=== PATIENT | female | born 1935 | race Caucasian/White ===

== ENCOUNTER 2022-09-01 10:31 | Emergency (ER) | payer OTHER, BC ==
[2022-09-01 11:21] LABS: Urine Blood Negative (Negative); Urine Glucose Negative (Negative); Urine Protein Negative (Negative); Urine pH 5.5 (5.0-7.0)
[2022-09-01 11:44] LABS: Absolute Lymphocytes (CBC) 0.9 K/uL (0.7-4.9); Hematocrit 21.3 % (36.0-45.0); Lymphocytes % 12.8 % (15.3-44.8); MCV 74.8 fL (80-100); RBC Red Blood Cell Count 2.85 M/uL (3.86-4.86)
[2022-09-01 11:58] LABS: Protime INR 1.12
[2022-09-01 12:03] LABS: Urine Bacteria <20 /HPF (<20); Urine Mucus Slight /HPF (None Seen); Urine RBC <5 /HPF (None Seen)
[2022-09-01 12:13] LABS: Bilirubin Direct 0.2 mg/dL (0-0.2); Bilirubin Total 0.4 mg/dL (0.2-1.0); Potassium 4.2 mmol/L (3.5-5.1); Protein, Total 6.6 g/dL (6.4-8.2); Troponin High Sensitivity 16.8 pg/mL (<58.9)
--- NOTE | 2022-09-01 13:07 | EDPHYS ---
Physician Documentation [facility] Name: Magaly Malloy Age: 86 yrs Sex: Female : 1935 Arrival Date: 09/01/2022 Time: 10:36 Bed 19 Private MD: ED Physician Rachele Klein HPI: 09/01 11:29 This 86 yrs old Female presents to ER via Ambulatory with complaints of Abnormal Lab sp3 Results. 11:29 86-year-old female with history of hypertension, hyperlipidemia, iron deficiency anemia sp3 presents with chief complaint generalized weakness and hemoglobin of 5.8 discovered yesterday during preoperative studies prior to planned procedure. Physician Dr. Soto sent her to the ED for blood transfusion and further evaluation. Patient has no other symptoms including headache, neck pain, chest pain, shortness of breath, abdominal pain, nausea, vomiting, diarrhea, melena, bleeding, or any other ROS symptoms at this time. She does describe generalized weakness without syncope or near syncope.. Historical: - Allergies: 10:40 No Known Allergies; ll1 - PMHx: 10:40 Hypertensive disorder; Hypercholesterolemia; Anemia; ll1 - PSHx: 10:40 hip replaced L; tubes tied; ll1 - Immunization history:: Client reports receiving the 2nd dose of the Covid vaccine. - Social history:: Smoking status: Patient denies any tobacco usage or history of. ROS: 11:31 Constitutional: Negative for fever, chills, and weight loss, Eyes: Negative for injury, sp3 pain, redness, and discharge, ENT: Negative for injury, pain, and discharge, Neck: Negative for injury, pain, and swelling, Cardiovascular: Negative for chest pain, palpitations, and edema, Respiratory: Negative for shortness of breath, cough, wheezing, and pleuritic chest pain, Abdomen/GI: Negative for abdominal pain, nausea, vomiting, diarrhea, and constipation, Back: Negative for injury and pain, Skin: Negative for injury, rash, and discoloration, Psych: Negative for depression, anxiety, suicide ideation, homicidal ideation, and hallucinations, Allergy/Immunology: Negative for hives, rash, and allergies. 11:31 All other systems are negative. Exam: 11:32 Constitutional: This is a well developed, well nourished patient who is awake, alert, sp3 and in no acute distress. Head/Face: Normocephalic, atraumatic. Eyes: Pupils equal round and reactive to light, extra-ocular motions intact. Lids and lashes normal. Conjunctiva and sclera are non-icteric and not injected. Cornea within normal limits. Periorbital areas with no swelling, redness, or edema. Neck: Trachea midline, no thyromegaly or masses palpated, and no cervical lymphadenopathy. Supple, full range of motion without nuchal rigidity, or vertebral point tenderness. No Meningismus. Chest/axilla: Normal chest wall appearance and motion. Nontender with no deformity. No lesions are appreciated. Cardiovascular: Regular rate and rhythm with a normal S1 and S2. No gallops, murmurs, or rubs. Normal PMI, no JVD. No pulse deficits. Respiratory: Lungs have equal breath sounds bilaterally, clear to auscultation and percussion. No rales, rhonchi or wheezes noted. No increased work of breathing, no retractions or nasal flaring. Abdomen/GI: Soft, non-tender, with normal bowel sounds. No distension or tympany. No guarding or rebound. No evidence of tenderness throughout. Back: No spinal tenderness. No costovertebral tenderness. Full range of motion. Skin: Warm, dry with normal turgor. Normal color with no rashes, no lesions, and no evidence of cellulitis. MS/ Extremity: Pulses equal, no cyanosis. Neurovascular intact. Full, normal range of motion. Neuro: Awake and alert, GCS 15, oriented to person, place, time, and situation. Cranial nerves II-XII grossly intact. Motor strength 5/5 in all extremities. Sensory grossly intact. Cerebellar exam normal. Normal gait. 13:02 ECG was reviewed by the Attending Physician. EKG demonstrates atrial fibrillation at 52 sp3 bpm without any evidence of ischemia on ST/T-segment's, poor R wave progression incomplete left bundle branch block. Vital Signs: 10:42 BP 143 / 52; Pulse 57; Resp 16; Temp 97.4; Pulse Ox 99% ; Weight 61.69 kg; Height 5 ft. ll1 0 in. (152.40 cm); Pain 0/10; 11:36 Pulse 56; Pulse Ox 99% on R/A; ap3 13:47 BP 142 / 53; Pulse 52; Pulse Ox 98% on R/A; ap3 16:53 BP 139 / 56; Pulse 50; Pulse Ox 99% on R/A; ap3 19:07 BP 151 / 54; Pulse 43; Resp 16; Pulse Ox 98% ; Pain 0/10; jj7 20:00 BP 148 / 65; Pulse 42; Resp 15; Pulse Ox 97% ; Pain 0/10; jj7 21:12 BP 154 / 61; Pulse 44; Resp 17; Pulse Ox 96% ; jj7 22:29 BP 141 / 82; Pulse 45; Resp 14; Pulse Ox 97% ; Pain 0/10; jj7 10:42 Body Mass Index 26.56 (61.69 kg, 152.40 cm) ll1 MDM: 10:49 Patient medically screened. sp3 11:32 Data reviewed: vital signs, nurses notes. ED course: 86-year-old female with a history sp3 of hypertension and iron deficiency anemia presents with hemoglobin of 5.8. I do not believe patient has acute losses and we will validate that low value with repeat studies. Units of PRBCs will be ordered once confirmed and transfused in the ED with subsequent discharge. Patient does not have any criteria for admission or 23-hour observation. Further work-up and reevaluation per her primary physician and team.. 13:03 ED course: Hemoglobin is 6.9 on repeat. We will still transfuse 2 units and then sp3 discharge her home to her PCP.. 09/01 10:48 Order name: Basic Metabolic Panel; Complete Time: 13:03 sp3 09/01 10:48 Order name: CBC with Diff; Complete Time: 13:03 sp3 09/01 10:48 Order name: LFT's; Complete Time: 13:03 sp3 09/01 10:48 Order name: PT-INR; Complete Time: 13:03 sp3 09/01 10:48 Order name: Troponin HS; Complete Time: 13:03 sp3 09/01 10:48 Order name: Type And Screen sp3 09/01 10:50 Order name: Type and Screen EDMS 09/01 10:51 Order name: Bb Add On bd 09/01 11:22 Order name: Urine Dipstick-Ancillary; Complete Time: 13:03 EDMS 09/01 11:25 Order name: Urine Microscopic Only; Complete Time: 13:03 kj1 09/01 11:26 Order name: Urine Culture kj1 09/01 14:10 Order name: ABO/RH no charge EDMS 09/01 10:48 Order name: EKG; Complete Time: 10:48 sp3 09/01 10:48 Order name: Cardiac monitoring; Complete Time: 11:48 sp3 09/01 10:48 Order name: EKG - Nurse/Tech; Complete Time: 11:48 sp3 09/01 10:48 Order name: IV Saline Lock; Complete Time: 11:48 sp3 09/01 10:48 Order name: Labs collected and sent; Complete Time: 12:02 sp3 09/01 10:48 Order name: O2 Sat Monitoring; Complete Time: 10:54 sp3 09/01 13:32 Order name: Labs - recollect needed: recollect abo rh; Complete Time: 13:41 bd Administered Medications: 20:37 Drug: Tylenol 1000 mg Route: PO; jj7 21:48 Follow up: Response: Marked relief of symptoms jj7 Disposition Summary: 09/01/22 13:07 Discharge Ordered Location: Home sp3 Condition: Stable sp3 Diagnosis - Anemia, unspecified sp3 Followup: sp3 - With: Private Physician - When: Upon discharge from the Emergency Department - Reason: Continuance of care Discharge Instructions: - Discharge Summary Sheet sp3 - Blood Transfusion, Adult sp3 Forms: - Medication Reconciliation Form sp3 - Thank You Letter sp3 - Antibiotic Education sp3 - Prescription Opioid Use sp3 Signatures: Dispatcher [employer] EDMS Katia Jovel Lynsay, RN RN ll1 Rachele Klein MD MD sp3 Linda Graves RN RN jj7 Gael Lindsay MD MD rt
--- NOTE | 2022-09-01 13:07 | ER ---
Nurse's Notes [facility] Name: Magaly Malloy Age: 86 yrs Sex: Female : 1935 Arrival Date: 09/01/2022 Time: 10:36 Bed 19 Private MD: Diagnosis: Anemia, unspecified Presentation: 09/01 10:42 Chief complaint: Patient states: Pre-op labs done yesterday. HGB 5.8, sent in by Marifer antonio and Dr. Soto. + fatigued. Coronavirus screen: Vaccine status: Patient reports receiving the 2nd dose of the covid vaccine. Client denies travel out of the [place] in the last 14 days. At this time, the client does not indicate any symptoms associated with coronavirus-19. Ebola Screen: Patient denies travel to an Ebola-affected area in the 21 days before illness onset. Risk Assessment: Do you want to hurt yourself or someone else? Patient reports no desire to harm self or others. Onset of symptoms was August 31, 2022. 10:42 Method Of Arrival: Ambulatory ll1 10:42 Acuity: ROBERT 2 ll1 10:53 Initial Sepsis Screen: Does the patient meet any 2 criteria? No. Patient's initial ap3 sepsis screen is negative. Does the patient have a suspected source of infection? No. Patient's initial sepsis screen is negative. Triage Assessment: 10:53 General: Appears in no apparent distress. Behavior is calm, cooperative. Pain: Denies ll1 pain. Neuro: Reports weakness. Historical: - Allergies: 10:40 No Known Allergies; ll1 - PMHx: 10:40 Hypertensive disorder; Hypercholesterolemia; Anemia; ll1 - PSHx: 10:40 hip replaced L; tubes tied; ll1 - Immunization history:: Client reports receiving the 2nd dose of the Covid vaccine. - Social history:: Smoking status: Patient denies any tobacco usage or history of. Screenin:51 Abuse screen: Denies threats or abuse. Nutritional screening: No deficits noted. ap3 Tuberculosis screening: No symptoms or risk factors identified. 11:35 [facility] ED Fall Risk Assessment (Adult) History of falling in the last 3 months, ap3 including since admission No falls in past 3 months (0 pts) Confusion or Disorientation No (0 pts) Intoxicated or Sedated No (0 pts) Impaired Gait Yes (1 pt) Mobility Assist Device Used Yes (1 pt) Altered Elimination No (0 pt) Score/Fall Risk Level 0 - 2 = Low Risk Oriented to surroundings, Maintained a safe environment, Educated pt \T\ family on fall prevention, incl call for assistance when getting out of bed, Assessed \T\ reinforced patient's understanding of fall precautions, Provided non-skid footwear, Hourly rounding (assess needs \T\ fall precautionary measures) done, Used ambulatory aids as needed (educated on \T\ assisted with). Assessment: 10:52 General: Appears in no apparent distress. comfortable, Behavior is calm, cooperative. ap3 Pain: Denies pain. Neuro: Level of Consciousness is awake, alert, obeys commands, Oriented to person, place, time, situation, Moves all extremities. Cardiovascular: Patient's skin is warm and dry. Respiratory: Airway is patent Respiratory effort is even, unlabored. 13:35 Reassessment:. ap3 13:46 Reassessment: awaiting blood transfusion prior to patient discharge. ap3 15:15 Reassessment: Patient and/or family updated on plan of care and expected duration. Pain ap3 level reassessed. Patient is alert, oriented x 3, equal unlabored respirations, skin warm/dry/pink. 16:28 Reassessment: Patient and/or family updated on plan of care and expected duration. Pain ap3 level reassessed. Patient is alert, oriented x 3, equal unlabored respirations, skin warm/dry/pink. 17:14 Reassessment: Patient and/or family updated on plan of care and expected duration. Pain ap3 level reassessed. Patient is alert, oriented x 3, equal unlabored respirations, skin warm/dry/pink. 19:07 Reassessment: ASSUMED CARE OF PT. PT LYING IN BED. NO PAIN OR DISTRESS. 1ST UNIT OF jj7 BLOOD FINISHED INFUSING. VS STABLE. DAUGHTER AT BEDSIDE. NO NEEDS AT THIS TIME. 20:40 Reassessment: Patient is alert, oriented x 3, equal unlabored respirations, skin jj7 warm/dry/pink. SECOND UNIT OF BLOOD STARTED. PT TOLERATING WELL. Vital Signs: 10:42 BP 143 / 52; Pulse 57; Resp 16; Temp 97.4; Pulse Ox 99% ; Weight 61.69 kg; Height 5 ft. ll1 0 in. (152.40 cm); Pain 0/10; 11:36 Pulse 56; Pulse Ox 99% on R/A; ap3 13:47 BP 142 / 53; Pulse 52; Pulse Ox 98% on R/A; ap3 16:53 BP 139 / 56; Pulse 50; Pulse Ox 99% on R/A; ap3 19:07 BP 151 / 54; Pulse 43; Resp 16; Pulse Ox 98% ; Pain 0/10; jj7 20:00 BP 148 / 65; Pulse 42; Resp 15; Pulse Ox 97% ; Pain 0/10; jj7 21:12 BP 154 / 61; Pulse 44; Resp 17; Pulse Ox 96% ; jj7 22:29 BP 141 / 82; Pulse 45; Resp 14; Pulse Ox 97% ; Pain 0/10; jj7 10:42 Body Mass Index 26.56 (61.69 kg, 152.40 cm) ll1 ED Course: 10:36 Patient arrived in ED. rg4 10:38 Rachele Klein MD is Attending Physician. sp3 10:44 Triage completed. ll1 10:51 Darcy Garibay, RN is Primary Nurse. ap3 10:51 Arm band placed on left wrist. ap3 10:51 Patient has correct armband on for positive identification. Placed in gown. Bed in low ap3 position. Call light in reach. Side rails up X 1. Adult w/ patient. hospital monitor on. Pulse ox on. NIBP on. 11:48 Bb Add On Sent. bc6 11:48 Type and Screen Sent. bc6 11:48 Type And Screen Sent. bc6 11:48 Basic Metabolic Panel Sent. bc6 11:48 CBC with Diff Sent. bc6 11:48 LFT's Sent. bc6 11:48 PT-INR Sent. bc6 11:48 Troponin HS Sent. bc6 11:48 Initial lab(s) drawn, by me, sent to lab. EKG done, by ED staff. Inserted saline lock: bc6 20 gauge in right antecubital area, using aseptic technique. 19:19 Primary Nurse role handed off by Darcy Garibay, RN mw2 20:19 Linda Graves, JONEL is Primary Nurse. jj7 22:29 No provider procedures requiring assistance completed. IV discontinued, intact, jj7 bleeding controlled, No redness/swelling at site. Pressure dressing applied. Administered Medications: 20:37 Drug: Tylenol 1000 mg Route: PO; jj7 21:48 Follow up: Response: Marked relief of symptoms jj7 Medication: 10:51 VIS not applicable for this client. ap3 Outcome: 13:07 Discharge ordered by . sp3 22:29 Discharged to home via wheelchair, with family. jj7 22:29 Condition: improved 22:29 Discharge instructions given to patient, family, Instructed on discharge instructions, follow up and referral plans. Demonstrated understanding of instructions, follow-up care. 22:55 Patient left the ED. mw2 Signatures: Anju Sales rg4 Darcy Garibay RN RN ap3 Emerson Lamas mw2 Mindi Willis, RN RN ll1 Rachele Klein MD MD sp3 Linda Graves RN RN jj7 Kierra Yepez 6
[2022-09-01] MEDS ORDERED: NA CHLORIDE 0.9% 250 ML ONE ×2 (15:19→20:29)
[2022-09-01] MEDS ORDERED: ACETAMINOPHEN 500 MG TAB ONE (20:34)
[2022-09-01 23:17] VITALS: TEMP 97.4
[2022-09-01 23:33] VITALS: BP 154/61; O2SAT 96
--- NOTE | 2022-09-02 14:56 | EKG ---
Test Date: 2022-09-01 Test Time: 11:39:23 Mold Closer: THUAN MEASUREMENT RESULTS: Intervals: Rate: 52 [place]: QRSD: 126 QT: 494 QTc: 459 [place]: P: [place]: QRS: -52 T: 81 INTERPRETIVE STATEMENTS: Atrial fibrillation with slow ventricular response Left axis deviation Left bundle branch block Abnormal ECG Compared to ECG 11/27/2021 12:34:48 Left bundle-branch block now present Myocardial infarct finding no longer present Electronically Signed On 09-02-22 14:54:44 DIGESTER CAPPER by Олег Caicedo
== END 2022-09-01 22:55 | disposition home or self-care (01) ==
LOC: ER 10:31
PROC: 30233N1 Transfusion of Nonautologous Red Blood Cells into Peripheral Vein, Percutaneous Approach (ICD-10-PCS; principal; 2022-09-01)
DX: D64.9 Anemia, unspecified (principal); I10 Essential (primary) hypertension; Z96.642 Presence of left artificial hip joint
CPT/HCPCS: 93005; 87088; 85025; 87086; 80048; 36415; 86900; 86850; 85610; 86901; 80076; 84484; 99284; 36430; P9016 ×3; J7050 ×2; 81003; 81015; 87077; 87186

== ENCOUNTER 2023-12-02 09:59 | Day surgery (SDC) | payer OTHER, BC ==
[2023-11-30 16:44] LABS: Absolute Eosinophils 0.4 K/uL (0-0.5); Absolute Lymphocytes (CBC) 1.3 K/uL (0.7-4.9); Absolute Monocytes 0.6 K/uL (0.1-1.3); Absolute Neutrophil 3.7 K/uL (1.8-8.0); Basophils % 0.5 % (0-1.3); Eosinophils % 6.6 % (0-4.4); Hemoglobin 10.7 g/dL (12.0-15.0); Lymphocytes % 21.2 % (15.3-44.8); MCH 29.7 pg (27.0-35.0); MCHC 34.4 g/dL (32.0-36.0); MCV 86.5 fL (80-100); Monocytes % 10.5 % (3.3-12.3); Neutrophils % 61.2 % (41.7-73.7); Nucleated Red Blood Cells % 0.1 % (0-0); Platelets 132 thou/uL (152-406); RBC Red Blood Cell Count 3.59 M/uL (3.86-4.86); Red Cell Distribution Width 14.2 % (12.1-15.2)
[2023-12-02] MEDS ORDERED: propofoL 200 MG/20 ML VIAL IV ONE ×2 (12:28→12:29)
[2023-12-02] MEDS ORDERED: LIDOCAINE 1% MPF 5 ML VIAL ONE (12:29)
[2023-12-02] MEDS: Ringers Lactate 1,000 ML IV ONE (12:33)
[2023-12-02] MEDS ORDERED: GLYCOPYRROLATE 0.2 MG/ML SYR ONE (12:44)
[2023-12-02] MEDS ORDERED: ATROPINE SULF 1 MG/10 ML SYR IV ONE ×2 (12:46→12:48)
[2023-12-02 14:36] VITALS: BP 133/56; TEMP 97.1; O2SAT 100
== END 2023-12-02 14:30 | disposition home or self-care (01) ==
LOC: OR 09:59
PROVIDERS: ATTEND Surgery
PROC: 0DBL8ZX Excision of Transverse Colon, Via Natural or Artificial Opening Endoscopic, Diagnostic (ICD-10-PCS; 2023-12-02)
PROC: 0DBN8ZX Excision of Sigmoid Colon, Via Natural or Artificial Opening Endoscopic, Diagnostic (ICD-10-PCS; principal; 2023-12-02 11:45)
DX: Z12.11 Encounter for screening for malignant neoplasm of colon (principal); Z85.038 Personal history of other malignant neoplasm of large intestine; K63.89 Other specified diseases of intestine; K63.5 Polyp of colon
CPT/HCPCS: 45385; 85025; 80048; 36415; 88304; J2704 ×2; J2001; J0461; J7120

== ENCOUNTER 2024-07-28 11:29 | Day surgery (SDC) | payer OTHER, BC ==
[2024-07-26 14:47] LABS: Absolute Eosinophils 0.3 K/uL (0-0.5); Absolute Lymphocytes (CBC) 0.7 K/uL (0.7-4.9); Absolute Monocytes 0.6 K/uL (0.1-1.3); Absolute Neutrophil 3.8 K/uL (1.8-8.0); Basophils % 0.9 % (0-1.3); Hematocrit 32.6 % (36.0-45.0); Hemoglobin 10.9 g/dL (12.0-15.0); Lymphocytes % 13.3 % (15.3-44.8); MCH 29.6 pg (27.0-35.0); MCHC 33.4 g/dL (32.0-36.0); MCV 88.5 fL (80-100); MPV 8.9 fL (7.6-11.3); Monocytes % 10.5 % (3.3-12.3); Neutrophils % 70.3 % (41.7-73.7); Platelets 127 thou/uL (152-406); RBC Red Blood Cell Count 3.68 M/uL (3.86-4.86); Red Cell Distribution Width 14.6 % (12.1-15.2)
[2024-07-26 15:01] LABS: Anion Gap 8.6 mEq/L (5.0-15.0); Potassium 4.6 mEq/L (3.5-5.1)
[2024-07-28] MEDS: Ringers Lactate 1,000 ML IV ONE (12:16)
[2024-07-28] MEDS ORDERED: NEOSTIGMINE 1 MG/ML -10 ML VIAL ONE (13:35)
[2024-07-28] MEDS ORDERED: propofoL 200 MG/20 ML VIAL IV ONE (13:35)
[2024-07-28] MEDS ORDERED: GLYCOPYRROLATE 0.2 MG/ML SYR ONE ×2 (13:35→15:11)
[2024-07-28] MEDS ORDERED: ONDANSETRON 4 MG/2 ML VIAL ONE (13:35)
[2024-07-28] MEDS ORDERED: ROCURONIUM 50 MG/5 ML VIAL IV ONE (13:36)
[2024-07-28] MEDS ORDERED: FENTANYL CITR 100 MCG/2 ML ONE (13:36)
[2024-07-28] MEDS ORDERED: LIDOCAINE 2% MPF 5 ML VIAL ONE (13:36)
[2024-07-28] MEDS: CEFAZOLIN SODIUM 1 GM/VIAL ONE (14:05)
[2024-07-28] MEDS ORDERED: EPHEDRINE SULF 50 MG/ML VIAL ONE (14:26)
[2024-07-28] MEDS: LIDOCAINE HCL/EPINEPHRINE 20 ML MDV ONE (14:40)
--- NOTE | 2024-07-28 14:52 | P.OP ---
Preoperative diagnosis: Ventral Incisional Hernia Postoperative diagnosis: Ventral Incisional Hernia Primary procedure: Laparoscopic Ventral Hernia Repair with mesh Anesthesia: GETA + Local Estimated blood loss: <5cc Specimen: None Findings: Incarcerated adipose / Omentum ~ 7cm hernia defect Complications: None Implants: Bard Ventralite ST 11.4cm Round, Sorbafix x 45 Transferred to: Recovery Room Condition: Good
[2024-07-28] MEDS: HYDROMORPHONE HCL 1 MG/ML INJ ONE (15:25)
[2024-07-28 17:05] VITALS: TEMP 97
[2024-07-28 18:00] VITALS: BP 151/67; O2SAT 93
--- NOTE | 2024-07-29 01:43 | OP ---
Date of Procedure: 07/28/2024 Surgeon: Deric Lopez MD, Preoperative Diagnosis: Ventral incisional hernia. Postoperative Diagnosis: Ventral incisional hernia. Procedure: Laparoscopic ventral incisional hernia repair with mesh. Anesthesia: General endotracheal plus local 1% lidocaine. Estimated Blood Loss: 5 cc. Specimen: None. Findings: Incarcerated adipose/omentum approximately 7 cm hernia defect appreciated in the infraumbi lical position. Complications: None. Implants: Bard Ventralight ST mesh with Echo Positioning System, 11.4 cm round mesh utilized, SobraF ix absorbable fixation tacks x45. Disposition: The patient was transferred to recovery room in good condition. Procedure In Detail: After informed was obtained, the patient brought to the operating room, prepped and draped in the usual sterile fashion. After adequate anesthesia was achieved, I anesthetized an area in the left upper quadrant down to the subcutaneous tissues. 5-mm 0-degree optical trocar was i ntroduced in the abdomen without incident or complication. Insufflation was obtained to 15 mmHg at t his time. No injury of vital structure upon entering the abdomen. Additional trocar was placed in t he left mid abdomen. They were similarly anesthetized sharply incised. A 12 mm trocar was placed un amrit direct vision without complication. At this point, I used the LigaSure to take down the incarcer ated omentum from a ventral incisional infraumbilical hernia without issue. The omentum was returned to the normal anatomic position. At this point, I proceeded to close the hernia defect using a V-Lo c suture on the Endo Stitch. The 0 V-Loc suture was used to close and reapproximate the edges of the fascia in a running fashion with good approximation of the tissues. Imbricated the hernia sac. At t his point when the defect was essentially closed, I deployed 11.[address] mesh with th e Echo Positioning System. The 11.4 cm round mesh was utilized and position of the infraumbilical po sition deployed at this point using the balloon deployment system through a stab incision at the infr aumbilical position. I then secured the anterior double wants her to the anterior abdominal wall wit h SobraFix fixation tacks. The balloon deployment system was removed, found to be intact back table. I then deployed a total 45 SorbaFix fixation tacks in a double crown type orientation of the mesh t o the anterior abdominal wall good approximation tissues at this time. At this point, the abdomen wa s inspected. No hemostatic was required. I then closed over the trocar site using a Teo-Prince suture passer with an 0 Vicryl in interrupted fashion, good approximation of tissues. The abdomen w as desufflated under direct vision without incidence or complication. Remaining trocars removed all skin were then copiously irrigated, closed with a 4-0 Monocryl in a running fashion Dermabond placed over top. The patient tolerated the procedure without incident or complication, transferred to PACU in good condition. All counts correct at the end of case. AUBREY/RENE Voice ID: [id number] Report ID: [id number]
== END 2024-07-28 17:58 | disposition home or self-care (01) ==
LOC: OR 11:29
PROVIDERS: ATTEND Surgery
PROC: 0WUF4JZ Supplement Abdominal Wall with Synthetic Substitute, Percutaneous Endoscopic Approach (ICD-10-PCS; principal; 2024-07-28 14:00)
DX: K43.0 Incisional hernia with obstruction, without gangrene (principal)
CPT/HCPCS: 85025; 80048; 36415; 49594; J2704; J2710; J2003; J3010; J1171; J2405; J7120; J0690; C1781

== ENCOUNTER 2025-01-03 11:42 | Emergency (ER) | payer OTHER, BC ==
--- OUTSIDE RECORDS SUMMARY | 2025-01-03 11:45 | XMS REPORT | Continuity of Care Document ---
Author Name Unknown Address [address] [facility] [address] [place] [address] [facility] Address [address] [facility] [address] [place] [address] Care Team Providers Care Christian Education Director Name Role Phone ASAD CORCORAN Primary Care Physician Unavailab Raffi Gifford Attending Clinician Unavailable Олег Caicedo Attending Clinician Unavailable RAMIN METCALF Attending Clinician UnavailОлег Calvillo Admitting Clinician Unavailable Payers Payer Name Policy Type Policy Number Effective Date Expirati on Date Source MEDICARE PART A \T\ B [id number] 2000 00:00:00 [facility] [id number] 2014 00:00:00 Allergies, Adverse Reactions, Alerts Allergy Name Allergy Type Status Severity Reaction(s) Onset Date Inactive Date Treating Clinician Comments Source No Known Allergie s DA Active U 08-31 00:00: 00 [facility] NO KNOWN ALLERGIE S Drug Class Active [facility] Encounters Start Date/Time End Date/Time Encounter Type Admission Type Attending Clinicians Care Facility Care Department Encounter ID Source 2023-09-02 10:02:00 [id number] 2021-09-17 14:02:[address] [facility] [id number] [facility] 2022-08-31 08:00:00 2022-08-31 09:00:00 Outpatient Олег Gil [facility] [id number] 2019-08-31 09:19:11 2019-08-31 23:59:00 Outpatient RAMIN METCALF [facility] [id number] [facility] Results Test Description Test Time Test Comments Results Result Co mments Source [id number] 11:19:00* Test Item Value Reference Range Interpretation Comme nts PREALBUMIN (test code = PREALB) 14.2 mg/dL 16.0-40.0 L CBC W/AUTO [id number] 11:02:00* Test Item Value Reference Range Interpretation Comme nts WHITE BLOOD CELL (test code = WBC) 7.9 x10 3/uL 4.5-11.0 N RED BLOOD CELL (test code = RBC) 2.98 x10 6/uL 3.54-5.02 L HEMOGLOBIN (test code = HGB) 7.3 g/dL 11.0-15.0 L HEMATOCRIT (test code = HCT) 23.2 % 33.0-45.0 L MEAN CELL VOLUME (test code = MCV) 77.9 fL 81.0-99.0 L MEAN CELL HGB (test code = MCH) 24.5 pg 27.0-33.0 L MEAN CELL HGB CONCETRATION (test code = MCHC) 31.5 g/dL 33.0-37.0 L RED CELL DISTRIBUTION WIDTH CV (test code = RDW) 15.2 % 11.5-14.5 H RED CELL DISTRIBUTION WIDTH SD (test code = RDW-SD) 42.8 fL 37.0-54.0 N PLATELET COUNT (test code = PLT) 276 x10 3/uL 150-400 N MEAN PLATELET VOLUME (test c ode = MPV) 9.7 fL 7.0-9.0 H NEUTROPHIL % (test code = NT%) 73.7 % 56.0-77.0 N IMMATURE GRANULOCYTE % (test code = IG%) 0.4 % 0.0-2.0 N LYMPHOCYTE % (test code = LY%) 11.5 % 14.0-32.0 L MONOCYTE % (test code = MO%) 10.3 % 4.8-9.0 H EOSINOPHIL % (test code = EO%) 3.6 % 0.3-3.7 N BASOPHIL % (test code = BA%) 0.5 % 0.0-2.0 N NUCLEATED RBC % (test code = NRBC%) 0.0 % 0-0 N NEUTROPHIL # (test code = NT#) 5.81 x10 3/uL 2.0-7.6 N IMMATURE GRANULOCYTE # (test code = IG#) 0.03 x10 3/uL 0.00-0.03 N LYMPHOCYTE # (test code = LY#) 0.91 x10 3/uL 1.0-3.8 L MONOCYTE # (test code = MO#) 0.81 x10 3/uL 0.1-0.8 H EOSINOPHIL # (test code = EO#) 0.28 x10 3/uL 0.0-0.2 H BASOPHIL # (test code = BA#) 0.04 x10 3/uL 0.0-0.2 N NUCLEATED RBC # (test code = NRBC#) 0.00 x10 3/uL 0.0-0.1 N MANUAL DIFF REQUIRED (test c ode = MDIFF) NO PROTHROMBIN [id number] 11:02:00* Test Item Value Reference Range Interpretation Comme nts PROTHROMBIN TIME PATIENT (test code = PTP) 12.5 SECONDS 9.3-12.9 N INTERNATIONAL NORMAL RATIO (test code = INR) 1.1 0.8-1.2 N TARGET INR BY INDICATION Indication INR1. Prophylaxis of venous thrombosis 2.0 - 3.0 (orthopedic surgery), Prophylaxis of venous thrombosis (other than high-risk surgery), Treatment of Deep Vein Thrombosis/Pulmonary Embolism, Prevention of systemic embolism - Tissue heart valves, Acute Myocardial Infarction (to prevent systemic embolism), Valvular heart disease, Atrial Fibrillation, Bileaflet mechanical valve in aortic position.2. Mechanical prosthetic valves (high risk), 2.5 - 3.5 Presence of Lupus Anticoagulant or Antiphospholipid Antibodies, Prevention of systemic embolism - Acute Myocardial Infarction (to prevent recurrent infarct). - XR CHEST 2 [id number] 00:00:[facility] 1935 Sex: F FAX: Raffi Carter MD [phone] [place]: St: PRE FAX: Олег Jay MD [phone] Name: LUANNE ISAAC [facility] [place] : 1935 Age/S: 86/F [address] [place] [address] Unit #: [id number] Loc: [place] [address] Phys: Олег Caicedo MD Acct: [id number] Dis Date: Status: PRE IN PHONE #: [phone] Date: 08/31/2022 1110 FAX #: [phone] Reason: PREOP EXAMS: CPT CODE: [id number] XR CHEST 2V [id number] PROCEDURE INFORMATION: Exam: XR Chest Exam date and time: 08/31/2022 10:58 AM Age: 86 years old Clinical indication: Pre-operative exam; Respiratory screening exam; Additional info: Preop TECHNIQUE: Imaging protocol: Radiologic exam of the chest. Views: 2 views. PA and Lateral COMPARISON: No r elevant prior studies available. FINDINGS: Lungs: Bilateral lung opacities are noted. Pleural spaces: No pleural effusion. No pneumothorax. Heart/Mediastinum: Heart size is enlarged. The radha appear full and indistinct. Vasculature: Atherosclerotic calcifications. Bones/joints: No acute fracture. Degenerative changes in the spine. IMPRESSION: Findings which may relate to mild congestive heart failure. Correlate for superimposed infiltrate. at 1149 Reported and signed by: Frandy Garcia M.D. CC: Raffi Soto MD; Олег Caicedo MD Technologist: Vi Nino RT(R) Trnscrd Date/Time/By: 08/31/2022 (1147) : By: [email or web address] Orig Print D/T: S: 08/31/2022 (3531) PAGE 1 Signed Report Notes Date/Time Note Provider Source 2022-08-31 10:05:00 [id number] [place] [address] PATIENT NAME: LUANNE ISAAC ADMIT DATE: ACCOUNT NO: [id number] ROOM NO: AGE: 86 REPORT TYPE: eELECTROCARDIOGRAM REPORT SEX: F ADMITTING PHYSICIAN:Олег Caicedo MD ATTENDING PHYSICIAN:Олег Caicedo MD Order: [id number] Test Reason : PREOP Test Date/Time Stamp: WedAug 31 2022 10:05:42 Blood Pressure : / mmHG Vent. Rate : 063 BPM Atrial Rate : 093 BPM P-R Int : 000 ms QRS Dur : 118 ms QT Int : 438 ms P-R-T Axes : 000 170 083 degrees QTc Int : 448 ms Suspect arm lead reversal, interpretation assumes no reversal Atrial fibrillation Nonspecific intraventricular conduction delay Anteroseptal infarct , old Abnormal ECG Confirmed by SABINE COOPER ([id number]) on 08/31/2022 10:12:52 AM Referred By: Олег Caicedo Confirmed by:SABINE COOPER at 1012 PATIENT NAME: LUANNE ISAAC [facility]
[2025-01-03] MEDS ORDERED: ACETAMINOPHEN 500 MG TAB ONE (12:51)
--- NOTE | 2025-01-03 13:10 | RAD REPORT ---
EXAMINATION: Elbow Right 3 View CLINICAL INDICATION: Female, 89 years old. PAIN RIGHT COMPARISON: No prior exam. FINDINGS: No acute fracture. No malalignment/dislocation. Olecranon spur. Enthesophytes at the medial and lateral epicondyle. Other: Soft tissue prominence at the olecranon could be small volume of fluid within the olecranon bu rsa. IMPRESSION: No acute osseous abnormality.
--- NOTE | 2025-01-03 13:31 | RAD REPORT ---
EXAM: CT brain without contrast HISTORY: TRAUMA COMPARISON: 10/23/2023 TECHNIQUE: Multiple contiguous axial images were obtained and a CT of the brain without contrast. Sag ittal and coronal reformats were performed. FINDINGS: No evidence of hydrocephalus, intracranial hemorrhage, or extra-axial fluid collection. The brain is normal in morphology. The calvarium is intact. The visualized paranasal sinuses and mastoid air cells are essentially clear . IMPRESSION: No evidence of acute intracranial abnormality. EXAM: CT of the cervical spine without contrast HISTORY: TRAUMA COMPARISON: None TECHNIQUE: Multiple contiguous axial images were obtained in a CT of the cervical spine without contr ast. Sagittal and coronal reformats were performed. FINDINGS: The vertebral bodies demonstrate normal height and alignment. No evidence of acute fracture or subluxation.. Multilevel degenerative changes with up to moderate neural foraminal narrowing at C5-6 bilaterally, and C6-7 on the left, secondary to uncovertebral joint and facet remodeling No pre vertebral soft tissue swelling is seen. The posterior facets are well aligned. Normal alignment of the skull base with the cervical spine is seen. The lung apices are unremarkable. Hypoattenuating right thyroid nodules largest measuring 1.2 cm. Dim inutive appearance of the left thyroid lobe. Atherosclerotic calcific plaque at the carotid bulbs. IMPRESSION: No evidence of acute osseous abnormality of the cervical spine. Stable multilevel degenerative changes as above.
--- NOTE | 2025-01-03 14:50 | RAD REPORT ---
EXAMINATION: CT PELVIS WITHOUT CONTRAST CLINICAL INDICATION: Female, 89 years old.[facility] MAIN trauma, hip pain Bed Name: 5 TECHNIQUE: CT pelvis was performed, without IV contrast, as per department protocol. Axial, sagittal and coronal reconstructions were obtained. One or more of the following dose reduction techniques were used: Automated exposure control, adjustment of the mA and/or kV according to patient size, and/ or iterative reconstruction. Unless otherwise specified, incidental findings do not require dedicated imaging follow-up. COMPARISON: No prior exam. FINDINGS: The lack of intravenous contrast limits the sensitivity of this exam for evaluation of solid visceral organs, vascular structures, and retroperitoneum. MUSCULOSKELETAL: No acute or suspicious osseous abnormality. Degenerative lumbar spine changes with g rade 1 spondylolisthesis at L5-S1, with the degree of anterolisthesis measuring approximately 11 mm. The findings contribute to moderate to severe bilateral neural foraminal narrowing worse on the l eft. Circumferential disc bulge at L4-5 also contributes to right worse than left neural foraminal narrowing. Left hip arthroplasty hardware in place which results in streak artifact, limiting evaluat ion. URINARY SYSTEM: No abnormalities of the included kidneys and ureters. Urinary bladder is unremarkable . GASTROINTESTINAL TRACT: Surgical staple line near the cecum, may reflect sequelae of partial resectio n Included small bowel is normal in caliber. No wall thickening or bowel inflammatory changes. LYMPH NODES: No lymphadenopathy. ABDOMINAL AORTA AND OTHER VESSELS: Normal caliber aorta and IVC. ADDITIONAL FINDINGS: Diastasis recti. Sequelae of ventral hernia mesh repair.. IMPRESSION: No acute abnormalities of the bony pelvis. Evaluation limited by lack of IV contrast. Multilevel lower lumbar spine degenerative changes as above, with grade 1 spondylolisthesis at L5-S1.
--- NOTE | 2025-01-03 14:59 | EDPHYS ---
Physician Documentation [facility] Name: Magaly Malloy Age: 89 yrs Sex: Female : 1935 Arrival Date: 01/03/2025 Time: 11:42 Bed 5 Private MD: ED Physician Gael Lindsay HPI: 01/03 16:25 This 89 yrs old Female presents to ER via EMS with complaints of Fall Injury. rt 16:25 Patient presents to the ED with mechanical fall. Patient lost her balance when trying rt to hold onto a towel rack to help her self up. She landed, hitting her right elbow causing an abrasion, reports mild pain to that area, reports mild pain to the left hip. States that she is unclear whether or not she hit her head. Denies other acute complaints at this time, symptoms are mild in severity, aching nature, nonradiating, no other aggravating or alleviating factors. Historical: - Allergies: 11:49 No Known Allergies; db - PMHx: 11:49 Anemia; Hypertensive disorder; Hypercholesterolemia; db 12:10 Anxiety; db - PSHx: 11:49 hip replaced L; tubes tied; db - Immunization history:: Adult Immunizations unknown. - Infectious Disease History:: Denies. - Social history:: Smoking status: Patient denies any tobacco usage or history of. - Family history:: not pertinent. ROS: 16:25 Constitutional: Negative for fever, chills, and weight loss, Cardiovascular: Negative rt for chest pain, palpitations, and edema, Respiratory: Negative for shortness of breath, cough, wheezing, and pleuritic chest pain, Abdomen/GI: Negative for abdominal pain, nausea, vomiting, diarrhea, and constipation, Skin: Negative for injury, rash, and discoloration, Neuro: Negative for headache, weakness, numbness, tingling, and seizure, 16:25 MS/extremity: Positive for abrasion, pain, Exam: 16:25 Constitutional: This is a well developed, well nourished patient who is awake, alert, rt and in no acute distress. Head/Face: Normocephalic, atraumatic. Chest/axilla: Normal chest wall appearance and motion. Nontender with no deformity. No lesions are appreciated. Cardiovascular: Regular rate and rhythm with a normal S1 and S2. No gallops, murmurs, or rubs. Normal PMI, no JVD. No pulse deficits. Respiratory: Lungs have equal breath sounds bilaterally, clear to auscultation and percussion. No rales, rhonchi or wheezes noted. No increased work of breathing, no retractions or nasal flaring. Abdomen/GI: Soft, non-tender, with normal bowel sounds. No distension or tympany. No guarding or rebound. No evidence of tenderness throughout. Skin: Warm, dry with normal turgor. Normal color with no rashes, no lesions, and no evidence of cellulitis. Neuro: Awake and alert, GCS 15, oriented to person, place, time, and situation. Cranial nerves II-XII grossly intact. Motor strength 5/5 in all extremities. Sensory grossly intact. Cerebellar exam normal. Normal gait. 16:25 Musculoskeletal/extremity: Abrasion to the right elbow, no other focal areas of tenderness, deformity. Vital Signs: 11:49 BP 195 / 66; Pulse 57; Resp 18; Temp 99.3; Pulse Ox 97% ; Weight 54.43 kg; Height 5 ft. db 5 in. ; 14:00 BP 172 / 57; Pulse 51; Resp 16; Pulse Ox 96% on R/A; db 15:00 BP 170 / 55; Pulse 52; Resp 16; Pulse Ox 97% ; db 11:49 Body Mass Index 19.97 (54.43 kg, 165.1 cm) db MDM: 11:57 Medical Screening Exam initiated rt 16:25 Differential diagnosis: Intracranial hemorrhage, fracture, contusion. Data reviewed: rt vital signs, nurses notes, radiologic studies. Independent interpretation of the following test(s) in the Emergency Department CT Scan: My interpretation is No intracranial hemorrhage seen on my interpretation of CT scan images. Test considered but Not performed: Other Details Reports clear mechanical fall, no syncopal symptoms, EKG, labs not indicated. Care significantly affected by the following chronic conditions: Hypertension. Counseling: I had a detailed discussion with the patient and/or guardian regarding the historical points, exam findings, and any diagnostic results supporting the discharge/admit diagnosis, radiology results, the need for outpatient follow up. Special discussion: I discussed with the patient/guardian in detail that at this point there is no indication for admission to the hospital. It is understood, however, that if the symptoms persist or worsen the patient needs to return immediately for re-evaluation. 01/03 12:08 Order name: Elbow Right 3 View XRAY; Complete Time: 14:32 rt 01/03 12:08 Order name: CT Head C Spine; Complete Time: 14:32 rt 01/03 12:08 Order name: CT Pelvis wo Cont; Complete Time: 14:51 rt Administered Medications: 12:57 Drug: Acetaminophen PO 1000 mg PO once Route: PO; db 13:30 Follow up: Response: No adverse reaction db Disposition Summary: 01/03/25 14:58 Discharge Ordered Notes: Location: Home rt Problem: new rt Symptoms: have improved rt Condition: Stable rt Diagnosis - Mechanical fall rt Followup: rt - With: Private Physician - When: 2 - 3 days - Reason: Discharge Instructions: - Discharge Summary Sheet rt - Fall Prevention in the Home, Adult rt Forms: - Medication Reconciliation Form rt - Antibiotic Education rt - Prescription Opioid Use rt - Patient Portal Instructions rt - Leadership Thank You Letter rt Signatures: Dispatcher [employer] Zoila Rivas RN RN db Gael Lindsay MD MD rt
--- NOTE | 2025-01-03 14:59 | ER ---
Nurse's Notes [facility] Name: Magaly Malloy Age: 89 yrs Sex: Female : 1935 Arrival Date: 01/03/2025 Time: 11:42 Bed 5 Private MD: Diagnosis: Mechanical fall Presentation: 01/03 11:49 Chief complaint: EMS states: PT FELL FROM SITTING POSITION ONTO FLOOR. STATES WAS db TRYING TO GET UP FROM TOILET REACHED FOR BAR GRABBED A TOWEL INSTEAD AND FELL. HIT RIGHT ELBOW AND HAS SKIN TEAR. DENIES LOC. DENIES ANY OTHER INJURIES. USES WALKER FOR AMBULATION. FROM HOME. Coronavirus screen: Client denies travel out of the [place] in the last 14 days. At this time, the client does not indicate any symptoms associated with coronavirus-19. Ebola Screen: Patient negative for fever greater than or equal to 101.5 degrees Fahrenheit, and additional compatible Ebola Virus Disease symptoms Patient denies exposure to infectious person. Patient denies travel to an Ebola-affected area in the 21 days before illness onset. No symptoms or risks identified at this time. Initial Sepsis Screen: Does the patient meet any 2 criteria? No. Patient's initial sepsis screen is negative. Does the patient have a suspected source of infection? No. Patient's initial sepsis screen is negative. Risk Assessment: Do you want to hurt yourself or someone else? Patient reports no desire to harm self or others. Onset of symptoms was January 03, 2025. 11:49 Method Of Arrival: [facility] db 11:49 Acuity: ROBERT 3 db Triage Assessment: 11:49 General: Appears in no apparent distress. comfortable, Behavior is calm, cooperative. db Pain: Complains of pain in right elbow. Neuro: Level of Consciousness is awake, alert, obeys commands, Oriented to person, place, time, situation. Respiratory: Airway is patent Respiratory effort is even, unlabored, Respiratory pattern is regular, symmetrical. Derm: Wound noted right elbow. Historical: - Allergies: 11:49 No Known Allergies; db - PMHx: 11:49 Anemia; Hypertensive disorder; Hypercholesterolemia; db 12:10 Anxiety; db - PSHx: 11:49 hip replaced L; tubes tied; db - Immunization history:: Adult Immunizations unknown. - Infectious Disease History:: Denies. - Social history:: Smoking status: Patient denies any tobacco usage or history of. - Family history:: not pertinent. Screenin:11 [facility] ED Fall Risk Assessment (Adult) History of falling in the last 3 months, db including since admission Yes- fall prone (multiple falls) (3 pts) Confusion or Disorientation No (0 pts) Intoxicated or Sedated No (0 pts) Impaired Gait Yes (1 pt) Mobility Assist Device Used Yes (1 pt) Altered Elimination No (0 pt) Score/Fall Risk Level 3 or more points = High Risk Oriented to surroundings, Maintained a safe environment, Hourly rounding (assess needs \T\ fall precautionary measures) done, Utilized family, sitter, or virtual ex chef as indicated. Abuse screen: Denies threats or abuse. Denies injuries from another. Nutritional screening: No deficits noted. Tuberculosis screening: No symptoms or risk factors identified. Assessment: 12:11 Reassessment: SEE TRIAGE FOR INITIAL ASSESSMENT. db 13:55 Reassessment: pt cleaned of incontinence. iw 14:14 Reassessment: Patient appears in no apparent distress at this time. Patient and/or db family updated on plan of care and expected duration. Pain level reassessed. Patient is alert, oriented x 3, equal unlabored respirations, skin warm/dry/pink. 15:25 Reassessment: Patient appears in no apparent distress at this time. Patient and/or db family updated on plan of care and expected duration. Pain level reassessed. Patient is alert, oriented x 3, equal unlabored respirations, skin warm/dry/pink. Vital Signs: 11:49 BP 195 / 66; Pulse 57; Resp 18; Temp 99.3; Pulse Ox 97% ; Weight 54.43 kg; Height 5 ft. db 5 in. ; 14:00 BP 172 / 57; Pulse 51; Resp 16; Pulse Ox 96% on R/A; db 15:00 BP 170 / 55; Pulse 52; Resp 16; Pulse Ox 97% ; db 11:49 Body Mass Index 19.97 (54.43 kg, 165.1 cm) db ED Course: 11:46 Patient arrived in ED. bd 11:48 Gael Lindsay MD is Attending Physician. rt 11:49 Arm band placed on Patient placed in an exam room. db 12:04 Zoila Fernández, JONEL is Primary Nurse. db 12:09 Triage completed. db 12:11 Patient has correct armband on for positive identification. Side rails up X2. Pulse ox db on. NIBP on. Warm blanket given. Pillow given. 12:51 Elbow Right 3 View XRAY In Process Unspecified. EDMS 13:16 CT Head C Spine In Process Unspecified. EDMS 13:16 CT Pelvis wo Cont In Process Unspecified. EDMS 15:25 Provided Education on: DISCHARGE AND FOLLOWUP. db 15:25 No provider procedures requiring assistance completed. Patient did not have IV access db during this emergency room visit. Administered Medications: 12:57 Drug: Acetaminophen PO 1000 mg PO once Route: PO; db 13:30 Follow up: Response: No adverse reaction db Medication: 15:25 VIS not applicable for this client. db Outcome: 14:58 Discharge ordered by . rt 15:25 Discharged to home ambulatory, with family, db 15:25 Condition: stable 15:25 Discharge instructions given to patient, family, Instructed on discharge instructions, follow up and referral plans. 15:33 Patient left the ED. iw Signatures: Dispatcher [employer] EDMS Katia Jovel Irene, RN RN iw Zoila Fernández, RN RN db Gael Lindsay MD MD rt
[2025-01-03 16:17] VITALS: BP 172/57; TEMP 99.3; O2SAT 96
== END 2025-01-03 15:33 | disposition home or self-care (01) ==
LOC: ER 11:42
DX: S51.011A Laceration without foreign body of right elbow, initial encounter (principal); W18.30XA Fall on same level, unspecified, initial encounter; Z96.642 Presence of left artificial hip joint
CPT/HCPCS: 70450; 72125; 72192; 99284